=== PATIENT | female | born 1990 | race Caucasian/White ===

== ENCOUNTER 2017-01-09 10:48 | Emergency (ER) | payer OTHER | END 2017-01-09 13:00 | disposition home or self-care (01) | LOC: ER1 10:48 | DX: N75.1 Abscess of Bartholin's gland (principal) | CPT/HCPCS: 10060; 87070; 87077; 87186; 87205; 99282 ==

== ENCOUNTER 2021-11-04 09:42 | Emergency (ER) | payer OTHER | END 2021-11-04 16:06 | disposition left against medical advice (07) | LOC: ER1 09:42 | DX: Z53.21 Procedure and treatment not carried out due to patient leaving prior to being seen by health care provider (principal) ==